=== PATIENT | male | born 1960 | race Caucasian/White ===

== ENCOUNTER 2020-09-23 16:08 | Inpatient (IN) | payer MEDICAID, OTHER ==
[~2020-09-23] VITALS: Ht 170.2 cm; Wt 72.7 kg
[2020-09-23 16:40] LABS: Basophils # (auto) 0.1 10 ^3/uL (0-0.2); Basophils % (auto) 0.9 % (0.0-2.0); Eosinophils # (auto) 0.1 10 ^3/uL (0-0.8); Eosinophils % (auto) 0.6 % (0.0-7.0); Hematocrit 49.6 % (41.0-53.0); Hemoglobin 16.6 g/dL (13.5-17.5); Lymphocytes # (auto) 1.4 10 ^3/uL (0.4-5.4); Lymphocytes % (auto) 17.4 % (10.0-50.0); Mean Corpuscular Hemoglobin 32.5 pg (28.0-32.0); Mean Corpuscular Hgb Conc. 33.5 g/dL (32.0-36.0); Monocytes # (auto) 0.6 10 ^3/uL (0-1.3); Monocytes % (auto) 7.6 % (0.0-12.0); Neutrophils # (auto) 5.8 10 ^3/uL (1.6-8.6); Neutrophils % (auto) 73.5 % (37.0-80.0); Nucleated Red Blood Cells % 0.1 %; Red Blood Cells 5.11 10^6/uL (4.5-5.90); Red Cell Distribution Width 13.9 % (11.8-14.3)
[2020-09-23 16:55] LABS: Albumin 3.1 g/dL (3.4-5.0); Anion Gap 8 (5-15); Blood Urea Nitrogen 14 mg/dL (7-18); Calcium 8.4 mg/dL (8.5-10.1); Carbon Dioxide 21 mmol/L (21-32); Chloride 98 mmol/L (98-107); Glucose 114 mg/dL (74-106); Potassium 4.9 mmol/L (3.5-5.1); Sodium 127 mmol/L (136-145)
[2020-09-23 16:59] LABS: Alanine Aminotransferase 39 U/L (16-61); Alkaline Phosphatase 97 U/L (45-117); Aspartate Aminotransferase 28 U/L (15-37); BUN/Creatinine Ratio 20.3; Bilirubin, Total 1.2 mg/dL (0.2-1.0); GFR African American 150 mL/min; GFR Non-African American 124 mL/min; Total Protein 6.6 g/dL (6.4-8.2)
[2020-09-23] MEDS ORDERED: cefTRIAXone 1GM/50ML D5W 50 ML IV ONE (20:45)
[2020-09-23] MEDS ORDERED: FUROSEMIDE 20 MG/2 ML VIAL IV ONE (20:45)
[2020-09-23] MEDS ORDERED: ACETAMINOPHEN 325 MG TAB PO PRN (21:30)
[2020-09-23] MEDS ORDERED: NITROGLYCERIN 0.4 MG SL TAB SL PRN (21:30)
[2020-09-23] MEDS ORDERED: ONDANSETRON HCL 4 MG/2 ML VIAL IV PRN (21:30)
[2020-09-23] MEDS ORDERED: MORPHINE SULF INJ 2 MG/ML SYRINGE 1ML IV PRN ×2 (21:30)
[2020-09-23 21:43] LABS: Urine Bacteria NONE SEEN /hpf (None Seen); Urine Blood Negative /uL (Negative); Urine Hyaline Cast MOD /lpf (0 - 2); Urine Mucus FEW (None Seen); Urine Specific Gravity 1.018 (1.001-1.035); Urine WBC 1 /hpf (0 - 3)
[2020-09-23] MEDS: DOXYCYCLINE 100MG/250ML 250 ML IV SCH (22:27)
[2020-09-24 01:00] VITALS: BP 128/91
[2020-09-24] MEDS ORDERED: SODIUM CHLORIDE 0.9% 1,000 ML IV ONE (01:00)
[2020-09-24 04:45] LABS: Alcohol, Urine < 3.0 mg/dL (0-10); Amphetamine Screen, Urine NEGATIVE (NEGATIVE); Barbiturate Scree,Urine NEGATIVE (NEGATIVE); Benzodiazephine Screen, Urine NEGATIVE (NEGATIVE); Cannabinoid Screen, Urine POSITIVE (NEGATIVE); Cocaine Screen, Urine NEGATIVE (NEGATIVE); Opiate Scree,Urine NEGATIVE (NEGATIVE); Phencyclidine Screen, Urine NEGATIVE (NEGATIVE)
[2020-09-24 05:30] VITALS: BP 125/83
[2020-09-24] MEDS: FUROSEMIDE 40 MG/4 ML VIAL IV SCH ×2 (05:56→18:00)
[2020-09-24 06:39] LABS: Basophils # (auto) 0.1 10 ^3/uL (0-0.2); Basophils % (auto) 0.9 % (0.0-2.0); Eosinophils # (auto) 0.1 10 ^3/uL (0-0.8); Eosinophils % (auto) 0.9 % (0.0-7.0); Hematocrit 48.6 % (41.0-53.0); Hemoglobin 16.6 g/dL (13.5-17.5); Lymphocytes # (auto) 1.5 10 ^3/uL (0.4-5.4); Lymphocytes % (auto) 18.3 % (10.0-50.0); Mean Corpuscular Hemoglobin 33.2 pg (28.0-32.0); Mean Corpuscular Hgb Conc. 34.2 g/dL (32.0-36.0); Mean Corpuscular Volume 97.3 fL (80.0-100.0); Monocytes # (auto) 0.7 10 ^3/uL (0-1.3); Monocytes % (auto) 8.3 % (0.0-12.0); Neutrophils # (auto) 5.8 10 ^3/uL (1.6-8.6); Neutrophils % (auto) 71.6 % (37.0-80.0); Nucleated Red Blood Cells % 0.2 %; White Blood Cell 8.1 10^3/uL (4.4-10.8)
[2020-09-24 09:00] VITALS: BP 151/99
[2020-09-24] MEDS: DOXYCYCLINE 100MG/250ML 250 ML IV SCH (09:59)
[2020-09-24] MEDS ORDERED: ENOXAPARIN SOD 40 MG/0.4 ML SYRINGE SC SCH (10:00)
[2020-09-24] MEDS ORDERED: METOPROLOL TARTRATE 1MG/1ML-5ML VIAL IV ONE (15:45)
[2020-09-24] MEDS: ENOXAPARIN SOD 60 MG/0.6 ML SYRINGE SC ONE ×2 (15:49→16:06)
[2020-09-24] MEDS: DIGOXIN (250MCG/ML) 2 ML AMPULE IV ONE ×2 (16:08→18:07)
[2020-09-24] MEDS: METOPROLOL TARTRATE 25 MG TAB PO SCH ×2 (16:44→21:34)
[2020-09-24 17:08] LABS: Albumin 2.7 g/dL (3.4-5.0); Anion Gap 8 (5-15); Blood Urea Nitrogen 15 mg/dL (7-18); Calcium 8.2 mg/dL (8.5-10.1); Carbon Dioxide 25 mmol/L (21-32); Chloride 95 mmol/L (98-107); Glucose 98 mg/dL (74-106); Sodium 128 mmol/L (136-145)
[2020-09-24 17:10] LABS: Aspartate Aminotransferase 25 U/L (15-37); BUN/Creatinine Ratio 24.6; GFR African American 173 mL/min; GFR Non-African American 143 mL/min
[2020-09-24 17:13] LABS: Alanine Aminotransferase 32 U/L (16-61); Alkaline Phosphatase 92 U/L (45-117); Bilirubin, Total 1.6 mg/dL (0.2-1.0)
[2020-09-24 17:49] VITALS: BP 119/72
[2020-09-24] MEDS ORDERED: cefTRIAXone 1GM/50ML D5W 50 ML IV SCH (21:00)
[2020-09-24] MEDS: CLINDAMYCIN 600MG IV 50 ML IV SCH (21:34)
[2020-09-24 22:00] VITALS: BP 97/73
[2020-09-24] MEDS ORDERED: ENOXAPARIN SOD 60 MG/0.6 ML SYRINGE SC SCH (22:00)
[2020-09-24] MEDS ORDERED: METOPROLOL TARTRATE 25 MG TAB PO SCH (22:00)
[2020-09-25 05:00] VITALS: BP 91/69
[2020-09-25] MEDS: CLINDAMYCIN 600MG IV 50 ML IV SCH ×3 (05:09→22:00)
[2020-09-25] MEDS: FUROSEMIDE 40 MG/4 ML VIAL IV SCH ×2 (05:28→18:42)
[2020-09-25 07:43] LABS: Basophils # (auto) 0.1 10 ^3/uL (0-0.2); Eosinophils # (auto) 0 10 ^3/uL (0-0.8); Eosinophils % (auto) 0.3 % (0.0-7.0); Hematocrit 47.7 % (41.0-53.0); Hemoglobin 16.2 g/dL (13.5-17.5); Lymphocytes # (auto) 1.7 10 ^3/uL (0.4-5.4); Lymphocytes % (auto) 21.8 % (10.0-50.0); Mean Corpuscular Hemoglobin 32.9 pg (28.0-32.0); Mean Corpuscular Hgb Conc. 33.9 g/dL (32.0-36.0); Mean Corpuscular Volume 96.8 fL (80.0-100.0); Monocytes # (auto) 0.9 10 ^3/uL (0-1.3); Monocytes % (auto) 11.9 % (0.0-12.0); Neutrophils # (auto) 5.1 10 ^3/uL (1.6-8.6); Nucleated Red Blood Cells % 0.1 %; Red Blood Cells 4.93 10^6/uL (4.5-5.90); Red Cell Distribution Width 13.7 % (11.8-14.3); White Blood Cell 7.8 10^3/uL (4.4-10.8)
[2020-09-25 08:15] LABS: Cholesterol 104 mg/dL (< 200); HDL Cholesterol 33 mg/dL (40-59); LDL Cholesterol 60 mg/dL (< 100); Triglycerides 59 mg/dL (< 150)
[2020-09-25 09:00] VITALS: BP 104/79
[2020-09-25] MEDS: ENOXAPARIN SOD 40 MG/0.4 ML SYRINGE SC SCH (10:00)
[2020-09-25] MEDS: POTASSIUM CHL 20 Meq TABLET PO SCH (10:02)
[2020-09-25] MEDS: ASPirin 81 mg TAB PO SCH (10:02)
[2020-09-25] MEDS: METOPROLOL TARTRATE 25 MG TAB PO SCH ×2 (10:03→22:00)
[2020-09-25 12:12] LABS: BUN/Creatinine Ratio 26.1; Calcium 8.3 mg/dL (8.5-10.1)
[2020-09-25] MEDS ORDERED: DOCUSATE SOD 100 MG CAP PO PRN (12:30)
[2020-09-25 13:00] VITALS: BP 121/96
[2020-09-25] MEDS ORDERED: AMIODARONE HCL 150 MG in D5W 5% 100 ML IV ONE (13:45)
[2020-09-25] MEDS ORDERED: AMIODARONE 450mg/250ml AE 250 ML IV SCH (14:00)
[2020-09-25 17:00] VITALS: BP 118/81
[2020-09-25] MEDS ORDERED: ALBUTEROL SULF 2.5 MG/0.5ML(0.5%) NEB SOLN NEB PRN (22:00)
[2020-09-25] MEDS: IPRATROPIUM BROM 0.5 MG/2.5ML INH SOL NEB PRN (22:42)
[2020-09-26 01:04] VITALS: BP 118/81
[2020-09-26] MEDS: AMIODARONE 450mg/250ml AE 250 ML IV SCH ×2 (01:43→17:57)
[2020-09-26] MEDS: CLINDAMYCIN 600MG IV 50 ML IV SCH ×3 (05:45→22:00)
[2020-09-26] MEDS: FUROSEMIDE 40 MG/4 ML VIAL IV SCH ×2 (05:46→17:38)
[2020-09-26 08:30] VITALS: BP 107/67
[2020-09-26] MEDS: METOPROLOL TARTRATE 25 MG TAB PO SCH ×2 (10:00→22:00)
[2020-09-26] MEDS: ASPirin 81 mg TAB PO SCH (10:00)
[2020-09-26] MEDS: POTASSIUM CHL 20 Meq TABLET PO SCH (10:00)
[2020-09-26] MEDS: ENOXAPARIN SOD 40 MG/0.4 ML SYRINGE SC SCH (10:00)
[2020-09-26] MEDS ORDERED: THROAT LOZENGES(CEPASTAT) MT PRN (10:30)
[2020-09-26 13:00] VITALS: BP 100/62
[2020-09-26 16:30] VITALS: BP 98/71
[2020-09-26 21:21] LABS: Mean Corpuscular Hemoglobin 32.3 pg (28.0-32.0); Red Cell Distribution Width 14.3 % (11.8-14.3)
[2020-09-26 21:22] LABS: Hematocrit 55.9 % (41.0-53.0); Hemoglobin 18.2 g/dL (13.5-17.5); Mean Corpuscular Hgb Conc. 32.5 g/dL (32.0-36.0); Mean Corpuscular Volume 99.4 fL (80.0-100.0); Red Blood Cells 5.62 10^6/uL (4.5-5.90); White Blood Cell 22.4 10^3/uL (4.4-10.8)
[2020-09-26 21:29] LABS: Basophils % (manual) 0 (0.0-2.0); Blast Cells 0; Eosinophils % (manual) 0 (0-7); Metamyelocytes % 0; Myelocytes % 0; Promyelocytes % 0; Reactive Lymphocytes 0
[2020-09-26 21:40] LABS: BUN/Creatinine Ratio 15.4; Calcium 9.2 mg/dL (8.5-10.1)
[2020-09-26 22:00] VITALS: BP 111/89
[2020-09-26] MEDS ORDERED: DEXTROSE (50%) 50ML SYRG IV ONE ×2 (22:00→22:15)
[2020-09-26] MEDS: DEXTROSE 10% 1,000 ML IV SCH (22:00)
[2020-09-26] MEDS ORDERED: SODIUM ZIRCONIUM CYCL 10 GM PAK PO ONE (22:00)
[2020-09-26 22:11] LABS: Band Neutrophils % (manual) 20; Lymphocytes % (manual) 12 (10.0-50.0); Monocytes % (manual) 8 (0-12)
[2020-09-26 23:55] LABS: BUN/Creatinine Ratio 15.2
[2020-09-26 23:56] LABS: Potassium 6.5 mmol/L (3.5-5.1)
[2020-09-27] VITALS (59 sets, daily range): BP systolic 49–188; BP diastolic 17–130
[2020-09-27] MEDS ORDERED: VANCOMYCIN 1GM/250ML 250 ML IV ONE (01:45)
[2020-09-27] MEDS ORDERED: FUROSEMIDE 40 MG/4 ML VIAL IV ONE (01:45)
[2020-09-27] MEDS ORDERED: InsuLIN REG 1unit/0.01ml Soln (100units/ml) IV ONE (01:45)
[2020-09-27] MEDS: AMIODARONE 450mg/250ml AE 250 ML IV SCH ×2 (02:00→15:20)
[2020-09-27] MEDS: InsuLIN REG 1unit/0.01ml Soln (100units/ml) SC SCH ×5 (04:00→20:00)
[2020-09-27] MEDS: ACCU-CHEK COMFORT CURVE STRIP VI SCH ×5 (04:00→21:06)
[2020-09-27] MEDS: FUROSEMIDE 40 MG/4 ML VIAL IV SCH (06:00)
[2020-09-27] MEDS ORDERED: MEROPENEM 500MG IVPB 50 ML IV SCH (06:00)
[2020-09-27] MEDS: DEXTROSE 10% 1,000 ML IV SCH ×2 (08:00→10:46)
[2020-09-27] MEDS ORDERED: DOPamine 1600MCG/ML D5W 250 ML IV SCH ×2 (10:30→18:45)
[2020-09-27 11:05] LABS: Basophils # (auto) 0.1 10 ^3/uL (0-0.2); Basophils % (auto) 0.5 % (0.0-2.0); Eosinophils # (auto) 0 10 ^3/uL (0-0.8); Eosinophils % (auto) 0.2 % (0.0-7.0); Hematocrit 51.1 % (41.0-53.0); Hemoglobin 16.7 g/dL (13.5-17.5); Lymphocytes # (auto) 1.8 10 ^3/uL (0.4-5.4); Lymphocytes % (auto) 9.7 % (10.0-50.0); Mean Corpuscular Hemoglobin 32.5 pg (28.0-32.0); Mean Corpuscular Hgb Conc. 32.7 g/dL (32.0-36.0); Mean Corpuscular Volume 99.5 fL (80.0-100.0); Monocytes # (auto) 1.2 10 ^3/uL (0-1.3); Monocytes % (auto) 6.2 % (0.0-12.0); Neutrophils # (auto) 15.5 10 ^3/uL (1.6-8.6); Neutrophils % (auto) 83.4 % (37.0-80.0); Nucleated Red Blood Cells % 0.9 %; Red Blood Cells 5.13 10^6/uL (4.5-5.90); Red Cell Distribution Width 14.5 % (11.8-14.3); White Blood Cell 18.6 10^3/uL (4.4-10.8)
[2020-09-27 11:21] LABS: Albumin 3.1 g/dL (3.4-5.0); Calcium 7.7 mg/dL (8.5-10.1)
[2020-09-27 11:30] LABS: Bilirubin, Total 5.8 mg/dL (0.2-1.0)
[2020-09-27 11:40] LABS: INR 5.13 (0.9-1.15)
[2020-09-27 11:44] LABS: Potassium 6.2 mmol/L (3.5-5.1)
[2020-09-27 12:00] LABS: Phosphorus 9.1 mg/dL (2.5-4.90)
[2020-09-27] MEDS ORDERED: SODIUM ZIRCONIUM CYCL 10 GM PAK PO ONE (12:00)
[2020-09-27] MEDS ORDERED: DEXTROSE (50%) 50ML SYRG IV ONE (12:00)
[2020-09-27] MEDS ORDERED: ALBUTEROL SULF 2.5 MG/0.5ML(0.5%) NEB SOLN NEB ONE (12:00)
[2020-09-27] MEDS ORDERED: InsuLIN REG 1unit/0.01ml Soln (100units/ml) SC ONE (12:00)
[2020-09-27] MEDS ORDERED: CALCIUM GLUC 1,000mg/50ml-NS 50 ML IV ONE (12:00)
[2020-09-27] MEDS: POTASSIUM CHL 20 Meq TABLET PO SCH (12:09)
[2020-09-27] MEDS: IPRATROPIUM BROM 0.5 MG/2.5ML INH SOL NEB PRN (12:09)
[2020-09-27] MEDS: METOPROLOL TARTRATE 25 MG TAB PO SCH ×2 (12:09→22:29)
[2020-09-27] MEDS: ENOXAPARIN SOD 40 MG/0.4 ML SYRINGE SC SCH (12:10)
[2020-09-27] MEDS: SODIUM BICARBONATE 50ML VIAL 75 ML in D5W/SOD CHL 0.45% 1,000 ML IV SCH (12:10)
[2020-09-27] MEDS: BUMETANIDE INJECTION 12.5 MG in GIVE UN-DILUTED 0 ML IV SCH (12:11)
[2020-09-27] MEDS: MEROPENEM 1GM IVPB 100 ML IV SCH (12:26)
[2020-09-27] MEDS: SODIUM ZIRCONIUM CYCL 10 GM PAK PO SCH ×2 (12:28→21:06)
[2020-09-27] MEDS ORDERED: DEXTROSE 10% 1,000 ML IV SCH ×2 (12:30→17:00)
[2020-09-27] MEDS ORDERED: SODIUM ZIRCONIUM CYCL 10 GM PAK ONE (12:31)
[2020-09-27] MEDS ORDERED: DEXTROSE 50% SYRINGE 50 ML IV ONE (12:31)
[2020-09-27 13:20] LABS: Lactic Acid w/Reflex 9.4 mmol/L (0.4-2.0)
[2020-09-27] MEDS ORDERED: PHYTONADIONE (VIT K)10 MG/ML 1ML VIAL SUBCUT ONE (15:45)
[2020-09-27 17:19] LABS: Creatinine, Urine 0 mg/dL (30.0-125.0); Sodium Urine 145 mmol/L (40-220)
[2020-09-27] MEDS: HYDROcodone-ACET 5/325MG TAB PO PRN ×2 (21:08→22:30)
[2020-09-27] MEDS ORDERED: PHENYLEPHRINE IV 250 ML IV ONE (21:51)
[2020-09-27] MEDS: PHENYLEPHRINE IV 250 ML IV SCH (22:00)
[2020-09-27 22:39] LABS: Basophils # (auto) 0.1 10 ^3/uL (0-0.2); Basophils % (auto) 0.6 % (0.0-2.0); Eosinophils # (auto) 0 10 ^3/uL (0-0.8); Hematocrit 50.1 % (41.0-53.0); Hemoglobin 16.5 g/dL (13.5-17.5); Lymphocytes % (auto) 5.9 % (10.0-50.0); Mean Corpuscular Hemoglobin 32.5 pg (28.0-32.0); Mean Corpuscular Volume 98.5 fL (80.0-100.0); Monocytes # (auto) 1.1 10 ^3/uL (0-1.3); Monocytes % (auto) 6.5 % (0.0-12.0); Neutrophils # (auto) 15.3 10 ^3/uL (1.6-8.6); Nucleated Red Blood Cells % 0.9 %; Red Blood Cells 5.08 10^6/uL (4.5-5.90); White Blood Cell 17.6 10^3/uL (4.4-10.8)
[2020-09-27 22:48] LABS: BUN/Creatinine Ratio 15.9; Calcium 6.8 mg/dL (8.5-10.1); Potassium 5.1 mmol/L (3.5-5.1)
[2020-09-27 23:06] LABS: Bilirubin, Total 5.4 mg/dL (0.2-1.0)
[2020-09-28] VITALS (87 sets, daily range): BP systolic 32–232; BP diastolic 15–126
[2020-09-28] MEDS: MEROPENEM 1GM IVPB 100 ML IV SCH (00:07)
[2020-09-28] MEDS: ACCU-CHEK COMFORT CURVE STRIP VI SCH ×5 (00:09→16:13)
[2020-09-28] MEDS: SODIUM BICARBONATE 50ML VIAL 75 ML in D5W/SOD CHL 0.45% 1,000 ML IV SCH (00:44)
[2020-09-28] MEDS: NOREPINEPHRINE 8 MG/250ML KIT 250 ML IV SCH ×2 (03:00→04:45)
[2020-09-28] MEDS: PHENYLEPHRINE IV 250 ML IV SCH ×2 (03:51→05:30)
[2020-09-28] MEDS: InsuLIN REG 1unit/0.01ml Soln (100units/ml) SC SCH ×5 (04:00→16:00)
[2020-09-28 05:06] LABS: Basophils # (auto) 0.1 10 ^3/uL (0-0.2); Basophils % (auto) 0.6 % (0.0-2.0); Eosinophils # (auto) 0 10 ^3/uL (0-0.8); Hematocrit 49.5 % (41.0-53.0); Hemoglobin 16.4 g/dL (13.5-17.5); Lymphocytes # (auto) 1.4 10 ^3/uL (0.4-5.4); Lymphocytes % (auto) 8.4 % (10.0-50.0); Mean Corpuscular Hemoglobin 32.9 pg (28.0-32.0); Mean Corpuscular Hgb Conc. 33.2 g/dL (32.0-36.0); Mean Corpuscular Volume 99.2 fL (80.0-100.0); Monocytes % (auto) 6.3 % (0.0-12.0); Neutrophils # (auto) 13.5 10 ^3/uL (1.6-8.6); Neutrophils % (auto) 84.7 % (37.0-80.0); Nucleated Red Blood Cells % 1.2 %; Red Blood Cells 4.99 10^6/uL (4.5-5.90); Red Cell Distribution Width 13.8 % (11.8-14.3)
[2020-09-28] MEDS: AMIODARONE 450mg/250ml AE 250 ML IV SCH (05:16)
[2020-09-28] MEDS: BUMETANIDE INJECTION 12.5 MG in GIVE UN-DILUTED 0 ML IV SCH (05:17)
[2020-09-28 05:21] LABS: BUN/Creatinine Ratio 14.7; Calcium 6.5 mg/dL (8.5-10.1); Potassium 5.4 mmol/L (3.5-5.1)
[2020-09-28 05:37] LABS: Partial Thromboplastin Time 59.2 sec (23.0-31.2)
[2020-09-28 05:53] LABS: INR 5.41 (0.9-1.15)
[2020-09-28] MEDS: SODIUM ZIRCONIUM CYCL 10 GM PAK PO SCH ×2 (06:00→14:00)
[2020-09-28] MEDS ORDERED: fentaNYL Drip 2500mCg/250mlNS 250 ML IV ONE (09:16)
[2020-09-28] MEDS ORDERED: PROPOFOL 100 ML IV ONE (09:16)
[2020-09-28] MEDS ORDERED: DEXTROSE 50% SYRINGE 50 ML IV ONE (09:20)
[2020-09-28] MEDS ORDERED: VASOPRESSIN 50 UNITS in D5W 5% 247.5 ML IV SCH (09:45)
[2020-09-28] MEDS ORDERED: PHENYLEPHRINE INJ 40 MG in SODIUM CHL 0.9% 246 ML IV SCH (09:45)
[2020-09-28] MEDS ORDERED: NOREPINEPHRINE BITARTRATE 16 MG in SODIUM CHL 0.9% 234 ML IV SCH (09:45)
[2020-09-28] MEDS ORDERED: EPINEPHrine HCL INJECTION 8 MG in D5W 5% 242 ML IV SCH (09:45)
[2020-09-28] MEDS ORDERED: SODIUM BICARBONATE 50ML VIAL 150 ML in D5W 5% 1,000 ML IV SCH (09:45)
[2020-09-28] MEDS ORDERED: SODIUM BICARBONATE 8.4% INJ 50ML SYRINGE ONE (09:55)
[2020-09-28] MEDS: POTASSIUM CHL 20 Meq TABLET PO SCH (10:00)
[2020-09-28] MEDS: METOPROLOL TARTRATE 25 MG TAB PO SCH (10:00)
[2020-09-28] MEDS ORDERED: SODIUM BICARBONATE 8.4 % INJ 50ML VIAL IV ONE ×3 (10:00→13:45)
[2020-09-28] MEDS: ENOXAPARIN SOD 40 MG/0.4 ML SYRINGE SC SCH (10:00)
[2020-09-28 10:05] LABS: Basophils # (auto) 0.1 10 ^3/uL (0-0.2); Basophils % (auto) 0.5 % (0.0-2.0); Eosinophils # (auto) 0 10 ^3/uL (0-0.8); Eosinophils % (auto) 0.1 % (0.0-7.0); Hematocrit 44.8 % (41.0-53.0); Hemoglobin 14.5 g/dL (13.5-17.5); Lymphocytes # (auto) 1.3 10 ^3/uL (0.4-5.4); Lymphocytes % (auto) 8.2 % (10.0-50.0); Mean Corpuscular Hemoglobin 32.8 pg (28.0-32.0); Mean Corpuscular Hgb Conc. 32.3 g/dL (32.0-36.0); Mean Corpuscular Volume 101.5 fL (80.0-100.0); Monocytes # (auto) 0.5 10 ^3/uL (0-1.3); Neutrophils # (auto) 13.6 10 ^3/uL (1.6-8.6); Neutrophils % (auto) 88.2 % (37.0-80.0); Nucleated Red Blood Cells % 1.1 %; Red Blood Cells 4.41 10^6/uL (4.5-5.90); Red Cell Distribution Width 14.9 % (11.8-14.3); White Blood Cell 15.4 10^3/uL (4.4-10.8)
[2020-09-28] MEDS ORDERED: MIDAZOLAM DRIP 50 mg/50mL 50 ML IV SCH (10:15)
[2020-09-28] MEDS ORDERED: fentaNYL Drip 2500mCg/250mlNS 250 ML IV SCH (10:15)
[2020-09-28] MEDS ORDERED: PANTOPRAZOLE 40 MG/10 ML VIAL INJ IV ONE (10:15)
[2020-09-28] MEDS ORDERED: ALBUTEROL SULF 2.5 MG/0.5ML(0.5%) NEB SOLN NEB ONE (10:15)
[2020-09-28 10:36] LABS: Albumin 2.3 g/dL (3.4-5.0); Potassium 5.1 mmol/L (3.5-5.1)
[2020-09-28] MEDS: DOPamine 1600MCG/ML D5W 250 ML IV SCH ×2 (10:42→15:02)
[2020-09-28 10:45] LABS: Albumin 2.1 g/dL (3.4-5.0)
[2020-09-28 10:46] LABS: INR 6.14 (0.9-1.15); Partial Thromboplastin Time 84.3 sec (23.0-31.2)
[2020-09-28] MEDS: PROPOFOL 100 ML IV SCH ×2 (10:52→18:10)
[2020-09-28 10:53] LABS: BUN/Creatinine Ratio 14.8; Bilirubin, Total 5.3 mg/dL (0.2-1.0); Total Protein 4.6 g/dL (6.4-8.2)
[2020-09-28] MEDS ORDERED: HYDROCORTISONE SOD SUCC 100 MG/2ML INJ VIAL IV SCH (11:00)
[2020-09-28 11:02] LABS: Bilirubin, Total 5.2 mg/dL (0.2-1.0); Total Protein 4.4 g/dL (6.4-8.2)
[2020-09-28] MEDS ORDERED: MEROPENEM 500MG IVPB 50 ML IV SCH (12:00)
[2020-09-28] MEDS ORDERED: PHYTONADIONE (VIT K)10 MG/ML 1ML VIAL IV ONE (12:15)
[2020-09-28] MEDS ORDERED: VANCOMYCIN PER PHARMACY 0 MG IV SCH (12:15)
[2020-09-28] MEDS ORDERED: phytonadione 10 MG in SODIUM CHL 0.9% 50 ML IV ONE (12:30)
[2020-09-28] MEDS ORDERED: PHENYLEPHRINE INJ 80 MG in SODIUM CHL 0.9% 242 ML IV SCH (13:00)
[2020-09-28] MEDS ORDERED: NOREPINEPHRINE BITARTRATE 32 MG in SODIUM CHL 0.9% 218 ML IV SCH (13:00)
[2020-09-28] MEDS ORDERED: EPINEPHrine HCL 1 MG/10 ML SYRG IV ONE (13:03)
[2020-09-28] MEDS ORDERED: ATROPINE SULF 1 MG/10ml SYR IV ONE (13:03)
[2020-09-28] MEDS ORDERED: DEXTROSE (50%) 50ML SYRG IV ONE (13:03)
[2020-09-28] MEDS ORDERED: SODIUM BICARBONATE 8.4% INJ 50ML SYRINGE IV ONE (13:03)
[2020-09-28] MEDS ORDERED: VANCOMYCIN 1GM/250ML 250 ML IV ONE (14:00)
[2020-09-28] MEDS: DEXTROSE (50%) 50ML SYRG IV PRN ×2 (15:59→16:14)
[2020-09-28] MEDS ORDERED: DEXTROSE 10% 1,000 ML IV SCH (17:15)
[2020-09-28] MEDS ORDERED: MORPHINE SULFATE 4 MG/ML SYR/VIAL IV ONE (19:30)
[2020-09-28] MEDS ORDERED: MORPHINE SULF INJ 2 MG/ML SYRINGE 1ML IV PRN (19:30)
[2020-09-28] MEDS ORDERED: LORazepam 2MG/ML-1ML VIAL IV PRN (19:30)
[2020-09-28] MEDS ORDERED: LORazepam 2MG/ML-1ML VIAL IM ONE (19:30)
[2020-09-29] MEDS ORDERED: PANTOPRAZOLE 40 MG/10 ML VIAL INJ IV SCH (10:00)
== END 2020-09-28 20:24 | DRG 720 ==
LOC: ER 16:08 → TELE-EAST 21:39 → DOU IN ICU 09-26 23:28
PROVIDERS: ADMIT Internal Medicine; ATTEND Internal Medicine
PROC: 02HV33Z Insertion of Infusion Device into Superior Vena Cava, Percutaneous Approach (ICD-10-PCS; 2020-09-27)
PROC: B548ZZA Ultrasonography of Superior Vena Cava, Guidance (ICD-10-PCS; 2020-09-27)
PROC: 5A1935Z Respiratory Ventilation, Less than 24 Consecutive Hours (ICD-10-PCS; principal; 2020-09-28)
PROC: 06HM33Z Insertion of Infusion Device into Right Femoral Vein, Percutaneous Approach (ICD-10-PCS; 2020-09-28)
PROC: 5A12012 Performance of Cardiac Output, Single, Manual (ICD-10-PCS; 2020-09-28)
PROC: 05H933Z Insertion of Infusion Device into Right Brachial Vein, Percutaneous Approach (ICD-10-PCS; 2020-09-28)
PROC: B54MZZA Ultrasonography of Right Upper Extremity Veins, Guidance (ICD-10-PCS; 2020-09-28)
PROC: 0BH17EZ Insertion of Endotracheal Airway into Trachea, Via Natural or Artificial Opening (ICD-10-PCS; 2020-09-28)
DX: A41.9 Sepsis, unspecified organism (principal); J96.01 Acute respiratory failure with hypoxia; K72.00 Acute and subacute hepatic failure without coma; N17.0 Acute kidney failure with tubular necrosis; R65.21 Severe sepsis with septic shock; E87.1 Hypo-osmolality and hyponatremia; D75.1 Secondary polycythemia; I46.9 Cardiac arrest, cause unspecified; L03.115 Cellulitis of right lower limb; Z20.822 Contact with and (suspected) exposure to COVID-19; Z66 Do not resuscitate; L03.116 Cellulitis of left lower limb; E16.2 Hypoglycemia, unspecified; E87.5 Hyperkalemia; F10.20 Alcohol dependence, uncomplicated; I42.9 Cardiomyopathy, unspecified; S81.802A Unspecified open wound, left lower leg, initial encounter; X58.XXXA Exposure to other specified factors, initial encounter; F12.90 Cannabis use, unspecified, uncomplicated; F17.210 Nicotine dependence, cigarettes, uncomplicated; Z82.3 Family history of stroke; Z82.49 Family history of ischemic heart disease and other diseases of the circulatory system; Y93.89 Activity, other specified; Y92.89 Other specified places as the place of occurrence of the external cause; Y99.8 Other external cause status; Z71.6 Tobacco abuse counseling; D68.4 Acquired coagulation factor deficiency; I50.21 Acute systolic (congestive) heart failure
CPT/HCPCS: 36415; 36600; 71045; 76705; 76775; 80048; 80053; 80061; 80076; 80307; 81001; 82533; 82550; 82570; 82805; 82962; 83036; 83516; 83605; 83615; 83735; 83880; 84100; 84133; 84156; 84166; 84300; 84443; 84484; 84550; 85007; 85025; 85027; 85362; 85610; 85730; 86225; 86235; 86703; 86850; 86900; 86901; 87040; 87070; 87077; 87186; 87205; 87426; 92950; 93005; 93306; 93970; 94002; 94640; 96365; 96375; C9113; G0378; J0171; J0696; J2185; J2405; J2704; J3430; J3490; J7060